=== PATIENT | female | born 1980 | race Two or more races ===

== ENCOUNTER 2020-07-26 12:35 | Emergency (ER) | payer OTHER ==
[~2020-07-26] VITALS: Ht 162.6 cm; Wt 83.9 kg
[2020-07-26 12:51] VITALS: BP 159/104
--- NOTE | 2020-07-26 13:09 | NUR ---
Patient discharged to home in stable condition. Written and verbal after care instructions given. Patient verbalizes understanding of instruction.
== END 2020-07-26 13:08 | disposition home or self-care (01) ==
LOC: ER 12:37
DX: Z00.8 Encounter for other general examination (principal); Z98.890 Other specified postprocedural states